=== PATIENT | male | born 1960 | race Caucasian/White ===

== ENCOUNTER 2019-06-22 04:52 | Inpatient (IN) ==
--- NOTE | 2019-06-08 10:26 | PAT Medication Instructions ---
Medication Instructions Date of Service June 08, 2019 Home Medications cholecalciferol (vitamin D3) [Vitamin D3] 125 mcg PO BID clorazepate dipotassium 7.5 mg PO BID cyclobenzaprine 10 mg PO BID PRN fentanyl 1 patch TRANSDERMAL Q72H multivitamin 2 tab PO QAM [Airborne (ascorbate sodium)] 1.7 mg PO BID prednisone [Anne-Marie] 5 mg PO HS Continue as directed fentanyl 1 patch TRANSDERMAL Q72H (okay to continue as directed by prior to surgery please avoid placement over surgery area) DO NOT take the morning of surgery cholecalciferol (vitamin D3) [Vitamin D3] 125 mcg PO BID cyclobenzaprine 10 mg PO BID PRN multivitamin 2 tab PO QAM [Airborne (ascorbate sodium)] 1.7 mg PO BID Take morning of surgery With a small sip of water, OTHERWISE NOTHING TO EAT OR DRINK AFTER MIDNIGHT: clorazepate dipotassium 7.5 mg PO BID Take evening before surgery cholecalciferol (vitamin D3) [Vitamin D3] 125 mcg PO BID clorazepate dipotassium 7.5 mg PO BID cyclobenzaprine 10 mg PO BID PRN (if needed) [Airborne (ascorbate sodium)] 1.7 mg PO BID prednisone [Anne-Marie] 5 mg PO HS Other Notes If you have any questions please call us at [phone] or [phone] or [phone] or [phone]
--- NOTE | 2019-06-08 10:35 | PAT Medication Instructions ---
Medication Instructions Date of Service June 08, 2019 Take morning of surgery With a small sip of water, OTHERWISE NOTHING TO EAT OR DRINK AFTER MIDNIGHT: Insulin Dependent Diabetic Patients * Test your blood sugar the morning of surgery * If Blood Sugar is GREATER THAN 150, take HALF of your regular dose of: * If Blood Sugar is LESS THAN 150, DO NOT TAKE ANY: Other Notes If you have any questions please call us at [phone] or [phone] or [phone] or [phone]
--- NOTE | 2019-06-09 13:08 | Anesthesiology Consultation ---
Date of Service June 09, 2019 Assessment & Plan (1) Encounter for pre-operative examination: Chart Review Chart Review: Patient seen in Pre Admission Testing Teaching & Discussion Pre-Anesthesia Teaching/Discussion Notes: Instructed NPO after midnight before surgery,except medications with 15 cc of water. Medication instructions provided according to the PAT guidelines. History Surgery Operation Date: 06/22/19 07:45 Proposed Procedures p Left Anterior Total Hip Arthroplasty - Mateusz Clark DO Height/Weight Height: 5 ft 8 in Weight: 68.039 kg Allergies Allergy/AdvReac Type Severity Reaction Status Date / Time morphine AdvReac Unknown HALLUCINATIONS, Verified 06/04/19 12:27 SKIN "CRAWLING" aspirin AdvReac Unknown Verified 06/04/19 12:28 NSAIDS (Non-Steroidal AdvReac elevated Verified 06/04/19 12:28 Anti-Inflamma LFT Medications Home Medications Medication Instructions Recorded Confirmed Last Taken cholecalciferol (vitamin D3) 125 mcg PO BID 06/04/19 06/04/19 Unknown [Vitamin D3] clorazepate dipotassium 7.5 mg PO BID 06/04/19 06/04/19 Unknown cyclobenzaprine 10 mg PO BID PRN 06/04/19 06/04/19 Unknown fentanyl 1 patch TRANSDERMAL Q72H 06/04/19 06/04/19 Unknown multivitamin 2 tab PO QAM 06/04/19 06/04/19 Unknown [id number] 1.7 mg PO BID 06/04/19 06/04/19 Unknown [Airborne (ascorbate sodium)] prednisone [Anne-Marie] 5 mg PO HS 06/04/19 06/04/19 Unknown Past Medical History Medical History Anxiety Chronic back pain Degenerative disc disease IBS (irritable bowel syndrome) Osteoarthritis Osteoporosis PMR (polymyalgia rheumatica) Past Family History Family History Grandfather (Maternal) Family history of esophageal cancer Uncle Family history of esophageal cancer Other No family history of adverse response to anesthesia Past Surgical History Surgical History History of colonoscopy History of esophagogastroduodenoscopy (EGD) History of fusion of cervical spine limited ROM to the left side History of lumbar fusion History of toe surgery History of tooth extraction Social History Smoking Status: Current every day smoker tobacco type: cigarettes Smoking cigarettes per day: 1/2 ppd Do You Dip or Chew Tobacco: No Hx Alcohol Use: No Hx Substance Use: No substance use type: does not use Physical Exam Vital Signs Patient denies chest pain, shortness of breath, dyspnea on exertion, joint pain, reflux, cough, wheezing, palpitations. PHYSICAL Full neck and c-spine range of motion. Full TMJ range of motion. TMD __ finger breaths Mallampati Score ___ Dentition: intact Lungs: clear throughout to auscultation Cardiac: regular rate and rhythm, no murmurs noted Spine: normal Carotid arteries: negative bruit Extremities: no edema
--- NOTE | 2019-06-09 13:18 | Anesthesiology Consultation ---
Date of Service June 09, 2019 Assessment & Plan (1) Encounter for pre-operative examination: Chart Review Chart Review: Acceptable Risk for Surgery (pending PCP clearance ) and Patient seen in Pre Admission Testing Pt on low dose steroid daily for PMR Awaiting surgeon ordered PCP clearance- 06/15/19 History Surgery Operation Date: 06/22/19 07:45 Proposed Procedures p Left Anterior Total Hip Arthroplasty - Mateusz Clark, Height/Weight Height: 5 ft 8 in Weight: 72.8 kg Allergies Allergy/AdvReac Type Severity Reaction Status Date / Time morphine AdvReac Unknown HALLUCINATIONS, Verified 06/04/19 12:27 SKIN "CRAWLING" aspirin AdvReac Unknown Verified 06/04/19 12:28 NSAIDS (Non-Steroidal AdvReac elevated Verified 06/04/19 12:28 Anti-Inflamma LFT Medications Home Medications Medication Instructions Recorded Confirmed Last Taken cholecalciferol (vitamin D3) 125 mcg PO BID 06/04/19 06/04/19 Unknown [Vitamin D3] clorazepate dipotassium 7.5 mg PO BID 06/04/19 06/04/19 Unknown cyclobenzaprine 10 mg PO BID PRN 06/04/19 06/04/19 Unknown fentanyl 1 patch TRANSDERMAL Q72H 06/04/19 06/04/19 Unknown multivitamin 2 tab PO QAM 06/04/19 06/04/19 Unknown [id number] 1.7 mg PO BID 06/04/19 06/04/19 Unknown [Airborne (ascorbate sodium)] prednisone [Anne-Marie] 5 mg PO HS 06/04/19 06/04/19 Unknown Past Medical History Medical History Anxiety Chronic back pain Multiple surgeries Degenerative disc disease IBS (irritable bowel syndrome) Controlled and stable Osteoarthritis Osteoporosis No known fractures PMR (polymyalgia rheumatica) Controlled and stable- low dose steroid- follows with rheum Exercise / Class Metabolic Activity II 4-5 Yardwork/Stairs/Walk up hill (one flight of stairs - no chest pain or SOB ) Past Family History Family History Grandfather (Maternal) Family history of esophageal cancer Uncle Family history of esophageal cancer Other No family history of adverse response to anesthesia Past Surgical History Surgical History History of colonoscopy History of esophagogastroduodenoscopy (EGD) History of fusion of cervical spine limited ROM to the left side History of lumbar fusion Three different lumbar surgeries History of toe surgery History of tooth extraction Past Anesthesia History No Hx of Anesthesia Complications and No Family Hx of Anesthesia Complications History of PONV No Hx of PONV and No Hx of Motion Sickness Social History Smoking Status: Current every day smoker tobacco type: cigarettes Smoking cigarettes per day: 1/2 ppd Do You Dip or Chew Tobacco: No Hx Alcohol Use: No Hx Substance Use: No substance use type: does not use Review of Systems Patient denies chest pain, shortness of breath, dyspnea on exertion, reflux, cough, wheezing, palpitations. No hx of seizures, CVA, [place]. No hx of blood clots or blood transfusions. Takes daily Prednisone. Physical Exam Vital Signs VITALS BP148/83 P 64 TEMP 97.6 SP02 97% RESP 16 Constitutional no acute distress ENMT Mouth: no TMJ clicking Thyromental Distance: > or= 3.5 Finger Breadths (3.5) Mallampati Class: I Mouth / Teeth: 1. Missing 2. Missing 3. Missing Neck + limited neck extension (no significant issues with neck extension- decreased rotation to left side ) Respiratory normal respiratory effort; no respiratory distress Auscultation: lungs clear to auscultation bilaterally; no wheezes Cardiovascular Rate/Rhythm: regular rate and regular rhythm Vessels: no carotid bruit Musculoskeletal Spine: no pain with cervical ROM Extremities: extremities normal to inspection No LE dedema Neurologic moves all extremities Psychiatric Orientation: alert Testing Laboratory Results 06/09/19 13:35 06/09/19 13:35 PT 10.4 Seconds (9.0-12.0) 06/09/19 13:35 INR 1.0 (0.9-1.1) 06/09/19 13:35 APTT 28.9 Seconds (21.0-31.0) 06/09/19 13:35 Hemoglobin A1c 5.2 % (4.5-5.6) 06/09/19 13:35 Urine Color Yellow 06/09/19 13:35 Urine Appearance Clear (Clear) 06/09/19 13:35 Urine pH 6.5 (4.5-7.5) 06/09/19 13:35 Ur Specific [place] 1.005 (1.000-1.030) 06/09/19 13:35 Urine Protein Negative (Negative) 06/09/19 13:35 Urine Glucose (UA) Negative (Negative) 06/09/19 13:35 Urine Ketones Negative (Negative) 06/09/19 13:35 Urine Nitrite Negative (Negative) 06/09/19 13:35 Ur Leukocyte Esterase Negative (Negative) 06/09/19 13:35 Blood Type O Negative 06/09/19 13:35 Antibody Screen NEGATIVE 06/09/19 13:35 Electrocardiogram Date: 06/09/19 Findings: + NSR @ (73) BRANDEN - compared to 09/2015 EKG no significant change Chest X-Ray Date: 06/09/19 No airspace consolidation. Blunting of the posterior costophrenic angles may be secondary to atelectasis versus trace effusions
--- NOTE | 2019-06-09 14:01 | XRay Report ---
XR chest Pre-admission PA/Lat HISTORY: 58 years-old Male pat preoperative exam. No acute chest complaints COMPARISON: None available TECHNIQUE: PA and lateral views of the chest FINDINGS: Cardiomediastinal and hilar silhouettes are within normal limits. There is no pneumothorax, large ple ural effusion, focal airspace consolidation or overt pulmonary edema. Bones of the chest appear gross ly intact. Mild blunting of the posterior costophrenic angles may be secondary to atelectasis versus trace effusions. Fusion hardware of the lower cervical spine. IMPRESSION: 1. No airspace consolidation. 2. Blunting of the posterior costophrenic angles may be secondary to atelectasis versus trace effusio ns. ACT 112: Negative or not required by law. The above report was generated using voice recognition software. It may contain grammatical, syntax o r spelling errors. Electronically signed by: Torres Silva M.D. 06/09/2019 2:00 PM
[2019-06-09 14:22] LABS: Basophils # (auto) 0.03 K/uL (0-0.2); Basophils % (auto) 0.3 %; Hematocrit (blood only) 46.5 % (42-52); Hemoglobin 15.8 g/dL (14.0-18.0); Immature Granulocytes # (auto) 0.02 K/uL (0.00-0.02); Immature Granulocytes % (auto) 0.2 %; Lymphocytes # (auto) 2.55 K/uL (1.2-3.4); Lymphocytes % (auto) 25.1 %; Mean Corpuscular Hemoglobin 32.5 pg (25-34); Mean Corpuscular Volume 95.7 fL (80-100); Mean Platelet Volume 10.5 fL (7.4-10.4); Monocytes # (auto) 0.85 K/uL (0.11-0.59); Monocytes % (auto) 8.4 %; Neutrophils # (auto) 6.61 K/uL (1.4-6.5); Platelet Count 218 K/uL (130-400); RDW Coefficient of Variation 12.6 % (11.5-14.5); RDW Standard Deviation 43.6 fL (36.4-46.3); Red Blood Count 4.86 M/uL (4.7-6.1); White Blood Count 10.16 K/uL (4.8-10.8)
[2019-06-09 14:34] LABS: Albumin Level 4.2 gm/dl (3.4-5.0); BUN Creatinine Ratio 8.6 (10-20); Calcium 9.7 mg/dl (8.5-10.1); Creatinine Clr Calc Pharmacy 93.8 ml/min; Est GFR (Non-African American) 96.6; Potassium 4.1 mmol/L (3.5-5.1)
[2019-06-09 14:38] LABS: Appearance Urine Clear (Clear); Bilirubin Urine Negative (Negative); Blood Urine Negative (Negative); Color Urine Yellow; Glucose Urine UA Negative (Negative); Ketones Urine Negative (Negative); Leukocyte Esterase Urine Negative (Negative); Nitrite Urine Negative (Negative); Partial Thromboplastin Ratio 1.1; Partial Thromboplastin Time 28.9 Seconds (21.0-31.0); Protein Urine Negative (Negative); Prothrombin Time 10.4 Seconds (9.0-12.0); Specific Gravity Urine 1.005 (1.000-1.030); Urobilinogen Urine Negative (Negative); pH Urine 6.5 (4.5-7.5)
[2019-06-09 14:54] LABS: Estimated Average Glucose 103 mg/dl; Hemoglobin A1C 5.2 % (4.5-5.6)
--- NOTE | 2019-06-09 17:57 | Electrocardiogram Report ---
Test Reason : Blood Pressure : / mmHG Vent. Rate : 073 BPM Atrial Rate : 073 BPM P-R Int : 172 ms QRS Dur : 100 ms QT Int : 374 ms P-R-T Axes : 081 065 074 degrees QTc Int : 412 ms Normal sinus rhythm Right atrial enlargement Borderline ECG When compared with ECG of 19-SEP-2015 11:35, No significant change was found Confirmed by Tru Braxton ([id number]) on 06/09/2019 5:57:27 PM Referred By: Mateusz Clark Confirmed By:Juvenal Braxton
--- NOTE | 2019-06-19 21:19 | History & Physical Report ---
Date of Service June 19, 2019 Assessment & Plan (1) Degenerative joint disease of left hip: I have indicated the patient for left anterior total hip replacement. The risks, benefits and complications of surgery were explained to the patient which include but not limited to infection, acute blood loss, DVT/PE, injury to nerves, vessels, bone, soft tissue, arthrofibrosis, chronic pain, failure of the prosthesis, hip dislocation, leg length discrepancy, need for additional surgery, cardiac and pulmonary events and . The patient wished to proceed with surgery and informed consent was obtained at this time. We will plan for Lovenox post-operatively for DVT prophylaxis. Upon discharge the patient will be discharged home with home health services. Appropriate clearances by PCP were obtained. History of Present Illness Chief Complaint: Left hip pain/djd Primary Care Provider: Juan Antonio Hightower The patient is a 58 year old male who presents with complaints of severe left hip pain and DJD. The patient has failed outpatient conservative treatments to this point which included IA corticosteroid injection and a home exercise/wa lking program. Patient unable to take NSAIDs due to allergy. The patient's pain and limited function have progressed to the point where they severely hinder their activities of daily living and they no longer tolerate exercise programs. They are requesting to proceed with total hip replacement surgery. Allergies Allergy/AdvReac Type Severity Reaction Status Date / Time morphine AdvReac Unknown HALLUCINATIONS, Verified 06/22/19 05:34 SKIN "CRAWLING" aspirin AdvReac Unknown Verified 06/22/19 05:34 NSAIDS (Non-Steroidal AdvReac elevated Verified 06/22/19 05:34 Anti-Inflamma LFT Home Medications Home Medications Medication Instructions Recorded Confirmed Type cholecalciferol (vitamin D3) 125 mcg PO BID 06/04/19 06/22/19 History [Vitamin D3] clorazepate dipotassium 7.5 mg PO BID 06/04/19 06/22/19 History cyclobenzaprine 10 mg PO BID PRN 06/04/19 06/22/19 History fentanyl 1 patch TRANSDERMAL Q72H 06/04/19 06/22/19 History multivitamin 2 tab PO QAM 06/04/19 06/22/19 History [id number] 1.7 mg PO BID 06/04/19 06/22/19 History [Airborne (ascorbate sodium)] prednisone [Anne-Marie] 5 mg PO HS 06/04/19 06/22/19 History Past Med/Surg History Medical History Anxiety Chronic back pain Multiple surgeries Degenerative disc disease IBS (irritable bowel syndrome) Controlled and stable Osteoarthritis Osteoporosis No known fractures PMR (polymyalgia rheumatica) Controlled and stable- low dose steroid- follows with rheum Surgical History History of colonoscopy History of esophagogastroduodenoscopy (EGD) History of fusion of cervical spine limited ROM to the left side History of lumbar fusion Three different lumbar surgeries History of toe surgery History of tooth extraction Family History Grandfather (Maternal) Family history of esophageal cancer Uncle Family history of esophageal cancer Other No family history of adverse response to anesthesia Social History Preferred Language: [place] Communication Ability: Effective Relations Coordinator Required: No Beliefs That Will Affect Care: None Current Living Situation: Spouse Other Information That Helps Us Care for You: No Feels Safe at Home: Yes Safety Concerns: Feels Safe At This Time Smoking Status: Current every day smoker Tobacco Type: cigarettes ; Cigarettes Per Day: 1/2 ppd ; Do You Dip or Chew Tobacco: No ; Second Hand Exposure: No ; Tobacco Cessation Education Requested by Patient: No Hx Alcohol Use: No Hx Substance Use: No Review of Systems Review of Systems: All systems reviewed & are unremarkable except as noted in HPI & below Constitutional: as per Subjective / HPI Physical Exam Physical Exam: LLE NVSI +EHL/FHL/TA/GS SILT grossly, +2 DP pulse, compartments soft NT, limited painful ROM of the hip, antalgic gait. Constitutional: WD/WN, vitals as above Eyes: PERRL, conjunctivae normal, anicteric sclerae ENMT: external ear and nose normal, oropharynx normal Neck: trachea midline, no thyromegaly Respiratory: normal respiratory effort, lungs clear to auscultation Cardiovascular: RRR, no murmur, no edema Gastrointestinal (Abdomen): normal bowel sounds, soft, nontender, no hepatosplenomegaly Musculoskeletal: no cyanosis or clubbing, extremities motor strength 5/5 Skin: no rashes, warm and dry Neurologic: patellar DTR's 2+ bilat, sensation intact Psychiatric: A+Ox3, euthymic affect Lymphatic: no cervical or axillary lymphadenopathy Results & Data Diagnostic Findings Multiple views of the hip demonstrates severe DJD with complete loss of the joint space. +osteophytes, +sclerosis, +subchondral cysts.
[2019-06-22] MEDS ORDERED: FAMOTIDINE 20 MG TAB PO SCH (06:00)
[2019-06-22] MEDS ORDERED: TRANEXAMIC ACID 1,000 MG **IV Pre-op IV SCH (06:00)
[2019-06-22] MEDS ORDERED: ACETAMINOPHEN 500 MG TAB PO SCH (06:00)
[2019-06-22] MEDS ORDERED: dexAMETHasone 4 MG TAB PO SCH (06:00)
[2019-06-22] MEDS ORDERED: LR 500ML BOLUS, THEN 15ML/HR IV SCH (06:00)
[2019-06-22] MEDS ORDERED: METOCLOPRAMIDE HCL 10 MG TABLET PO SCH (06:00)
[2019-06-22] MEDS ORDERED: GABAPENTIN 600 MG DOSE PO SCH (06:00)
[2019-06-22] MEDS ORDERED: CEFAZOLIN 1000MG 1,000 MG/7.5 ML SYR IV SCH (06:00)
[2019-06-22] MEDS ORDERED: TRANEXAMIC ACID 1,000 MG **IV Intra-op IV SCH (06:00)
[2019-06-22] MEDS ORDERED: ROPIVACAINE 0.5% HCL/PF 150 MG, BUPIVACAINE 0.5% MPF 30 ML, EPINEPHrine 30MG/30ML (OR U... INSTIL SCH (06:00)
[2019-06-22] MEDS ORDERED: BUPIVACAINE 0.5 % 5 MG/1 ML PF 10ML VIAL ONE (06:19)
[2019-06-22] MEDS ORDERED: MIDAZOLAM HCL 1 MG/ML 2ML VIAL ONE ×2 (06:42→07:40)
[2019-06-22] MEDS ORDERED: fentaNYL citrate 100 MCG/2 ML VIAL ONE (06:43)
[2019-06-22] MEDS ORDERED: PROPOFOL IV EMULSION 10 MG/ML 20 ML VIAL IV ONE ×2 (06:51→08:08)
[2019-06-22] MEDS ORDERED: LIDOCAINE HCL 2% 2 ML VIAL/AMP(20MG/ML) INFIL ONE (06:51)
[2019-06-22] MEDS ORDERED: ONDANSETRON INJ 2 MG/ML 2 ML VIAL ONE (06:54)
[2019-06-22] MEDS ORDERED: BACITRACIN INJ 50,000 UNIT VIAL ONE (06:57)
[2019-06-22] MEDS ORDERED: ORTHO JOINT ANESTHETIC ONE (06:57)
[2019-06-22] MEDS ORDERED: ATROPINE SULFATE 0.1 MG/ML 10ML SYR IV PRN (06:58)
[2019-06-22] MEDS ORDERED: fentaNYL citrate 100 MCG/2 ML VIAL IV PRN (06:58)
[2019-06-22] MEDS ORDERED: ePHEDrine sulfate 50 MG/ML AMP IV PRN (06:58)
[2019-06-22] MEDS ORDERED: ONDANSETRON INJ 2 MG/ML 2 ML VIAL IV PRN ×2 (06:58→10:38)
--- NOTE | 2019-06-22 07:10 | History & Physical Bridge Note ---
Date of Service June 22, 2019 History & Physical Bridge Note I have examined the patient, reviewed the History & Physical and in the interval since the performance of the History & Physical I have noted the following changes of clinical significance: no changes noted
[2019-06-22] MEDS ORDERED: KETAMINE HCL INJ 50 MG/ML 10 ML VIAL ONE (07:41)
[2019-06-22] MEDS ORDERED: CEFAZOLIN 250 MG/ML 1 GM VIAL ONE (07:51)
[2019-06-22] MEDS ORDERED: ePHEDrine sulfate 50 MG/ML SYR ONE (08:08)
[2019-06-22] MEDS ORDERED: CEFAZOLIN 1000MG 1,000 MG/7.5 ML SYR IV ONE (08:58)
--- NOTE | 2019-06-22 09:05 | Post Operative Brief Note ---
Immediate Post Op Note v1 Date of Surgery June 22, 2019 Pre & Post Diagnosis Operation Date: 06/22/19 07:15 Pre-Op Diagnosis: Left Hip Osteoarthritis Post-Op Diagnosis: Left Hip Osteoarthritis I identified the patient and participated in the time-out.: Yes Procedure Operation Date: 06/22/19 07:15 Actual Procedures p Left Anterior Total Hip Arthroplasty uncemented(Left) - Mateusz Clark DO Surgeon Mateusz Clark DO Corporate Recruiter David Carrion Estimated Blood Loss 125 Findings Consistent with Post-Op Diagnosis Fluids 2000 cc LR Specimens femoral head Anesthesia Type Spinal MAC Complications none Disposition Disposition: Recovery Room Overlapping Procedure I was present for: the critical portions of procedure. I was immediately available: during the entire case. Back up surgeon: was not required during procedure.
--- NOTE | 2019-06-22 09:07 | Fluoroscopy Report ---
FL hip LT 1V CLINICAL HISTORY: Left anterior total hip arthroplasty COMPARISON STUDY: None. FLUOROSCOPY TIME: 53 seconds. FLUOROSCOPIC IMAGES: 2 FINDINGS: Fluoroscopy was provided during total left hip arthroplasty. Alignment of the hardware is a natomic. Hardware is intact. Acetabular screw is noted. There is no fracture or unexpected radiopaque foreign body. IMPRESSION: Expected findings following total left hip arthroplasty. ACT 112: Negative or not required by law. Electronically signed by: Paco Navas M.D. 06/22/2019 9:06 AM
--- NOTE | 2019-06-22 09:09 | Operative Report ---
Post Operative Report Pre & Post Diagnosis Operation Date: 06/22/19 07:15 Pre-Op Diagnosis: Left Hip Osteoarthritis Post-Op Diagnosis: Left Hip Osteoarthritis I identified the patient and participated in the time-out.: Yes Procedure Operation Date: 06/22/19 07:15 Actual Procedures p Left Anterior Total Hip Arthroplasty uncemented(Left) - Mateusz Clark DO Surgeon Mateusz Clark DO Advertising Intern David Carrion Estimated Blood Loss 125 Findings Consistent with Post-Op Diagnosis Specimens femoral head Anesthesia Type Spinal MAC Complications none Disposition Disposition: Recovery Room Indications The patient is a 58-year-old male who presents with severe progressive left hip DJD who has failed outpatient conservative treatments. I indicated the patient for a anterior total hip replacement and the risks and benefits were explained in detail which include but not limited to infection, bleeding, blood clot, damage to surrounding bone, nerves, vessels, soft tissue, hip dislocation, failure of the prosthesis, leg length discrepancy, need for additional surgery and . The patient agreed to proceed with replacement of the hip and informed consent was obtained. Appropriate clearances were obtained. Description of Procedure COMPONENTS USED: [employer] hip system: Acetabulum size 56, femur size 7 high offset, femoral head 36+0, liner 5636, acetabular screw 25 mm x 1. DESCRIPTION OF PROCEDURE: Following satisfactory spinal anesthesia, the patient was placed supine on the OR table. The right leg was placed in the well leg marin and the left leg in the traction device. The left leg was prepared with ChloraPrep and draped sterilely. A surgical timeout was performed, patient identified and site desiree verified. Appropriate antibiotics were given. A standard anterior approach in the interval between the sartorius and tensor muscles was performed. Dissection was carried down through subcutaneous tissues. Electrocautery was utilized for hemostasis. Circumflex femoral vessels were identified, tied and ligated. The anterior capsular fat pad was removed and the capsulotomy was performed revealing the arthritic femoral neck and head. A femoral neck cut was made with reciprocating saw and the bone fragments removed. The acetabular self-retraining retractor was placed. Acetabular reaming was completed under fluoroscopic guidance, a 56 shell was impacted into an anatomic position and secured with a dome screw. Local anesthetic was placed and following irrigation, the polyethylene liner was placed. The femur was placed into position of external rotation, extension and adduction. Femoral canal was prepared up to the size 7 high offset. Trial reduction with a +0 neck length head showed good soft tissue tension, leg l engths restored, and good fit and fill of the proximal canal using fluoroscopic landmarks. The hip was dislocated. The trial component was removed. The final implant was placed. The hip was irrigated with sterile saline solution and reduced. A Betadine soak was performed. After 3 minutes, the hip was once more irrigated with copious sterile saline solution with bacitracin. Darshana-incisional soft tissue was injected utilizing [place] [employer] which includes a combination of Ropivicaine 0.5% 150mg, Bupivicaine 0.5%/Epinephrine 1:200,000 30ml, Toradol 30mg, Dexamethasone 4mg, Ketamine 10mg, Clonidine 100mcg and NSS 30ml solution. The capsule was then closed with 1-0 Vicryl interrupted figure of eight sutures. The fascia was closed with a running suture of #1 Vicryl, the subcutaneous tissues with 2-0 Vicryl and the skin with a running subcuticular stitch of 3-0 V-Loc. Dermabond prineo and a dry dressing were applied. The patient tolerated the procedure well and was transported to PACU in stable condition. Due to the complex nature of the procedure, the entire surgery was performed with the operational assistance of David carrion PA-C. The judicial administrative assistant, under direct supervision, was involved in the actual performance of all aspects of the surgical procedure including patient positioning, hemostasis, tissue retraction, instrument management and wound closure. I attest to the content of the Intraoperative Record and any orders documented therein. Any exceptions are noted below.
--- NOTE | 2019-06-22 10:04 | XRay Report ---
XR hip 1V LT w pelvis CLINICAL HISTORY: Postoperative evaluation. COMPARISON: Intraoperative fluoroscopic images of the left hip. FINDINGS: Alignment of the total left hip arthroplasty is anatomic anatomic. There is no periprosthe tic fracture or unexpected radiopaque foreign body. There is an acetabular screw. IMPRESSION: Expected findings following total left hip arthroplasty. ACT 112: Negative or not required by law. Electronically signed by: Paco Navas M.D. 06/22/2019 10:03 AM
[2019-06-22] MEDS ORDERED: METOCLOPRAMIDE HCL INJ 5 MG/ML 2 ML VIAL IV PRN (10:38)
[2019-06-22] MEDS ORDERED: MAGNESIUM HYDROXIDE SUSP 30 ML UDC PO PRN (10:38)
[2019-06-22] MEDS ORDERED: NALOXONE HCL 0.4 MG/1 ML VIAL/CARP IV PRN (10:38)
[2019-06-22] MEDS ORDERED: HYDROmorphone INJ 0.5 MG/0.5 ML SYR IV PRN (10:38)
[2019-06-22] MEDS ORDERED: bisacodyL 10 MG SUPP PR PRN (10:38)
--- NOTE | 2019-06-22 10:47 | Anesthesiology Progress Note ---
Date of Service June 22, 2019 Anesthesia Post Procedure Vital Signs Vital Signs: Temp Pulse Pulse Pulse Resp BP Pulse Ox 06/22/19 10:25 36.4 C L 65 16 105/64 97 06/22/19 10:10 56 L 16 101/61 98 06/22/19 10:02 36.3 C L 59 L 15 102/60 96 06/22/19 09:50 69 10 L 96/61 L 100 06/22/19 09:40 65 10 L 83/58 L 100 06/22/19 09:30 65 10 L 86/51 L 100 06/22/19 09:24 36.3 C L 75 12 89/53 L 96 06/22/19 05:39 36.5 C 55 L 16 93/67 L 96 Pain Intensity Back: Pain Intensity: 7 Left Hip: Pain Intensity: 0 Transfer of Care Handoff Completed per policy Notes Mental Status: alert / awake / arousable and participated in evaluation Patient Amnestic to Procedure: Yes Nausea / Vomiting: adequately controlled Pain: adequately controlled Airway Patency, RR, SpO2: stable & adequate BP & HR: stable & adequate Hydration State: stable & adequate Neuraxial Anesthesia: was administered and sensory block is resolving Anesthetic Complications: no major complications apparent and Pt Satisfied with anesthetic care
[2019-06-22] MEDS: SODIUM CHLORIDE 0.9% 1000ML 1,000 ML IV SCH ×2 (11:27→20:36)
--- NOTE | 2019-06-22 12:24 | Orthopedic Progress Note ---
Date of Service June 22, 2019 Assessment & Plan (1) Degenerative joint disease of left hip: Status post left anterior total hip arthroplasty -Ancef x24 -DVT prophylaxis SCDs, teds, Lovenox daily -Weight-bear as tolerates left lower extremity -PT/OT -Postoperative x-ray demonstrates a well aligned well fixed orthopedic prosthesis without evidence of fracture or dislocation. -A.m. labs -DC planning Admission and Anticipated Discharge Date Admission Date: June 22, 2019 Subjective Post Operative Progress Note Patient seen sitting up in bed, comfortable, denies complaints, pain well controlled, no acute issues. Still feeling effects of spinal anesthesia. Review of Systems Review of Systems: All systems reviewed & are unremarkable except as noted in HPI & below Constitutional: as per Subjective / HPI Physical Exam Physical Exam: Physical exam limited secondary to spinal anesthesia, +2 dorsalis pedis pulse, compartment soft nontender, dressing clean dry and intact. Constitutional: WD/WN, vitals as above Results & Data ([facility]) Vital Signs (Past 12 Hours) Vital Signs Temp Pulse Pulse Pulse Pulse Resp BP 06/22/19 12:07 36.5 C 59 L 16 117/73 06/22/19 11:24 36.4 C L 60 16 106/66 06/22/19 10:57 64 16 109/66 06/22/19 10:25 36.4 C L 65 16 105/64 06/22/19 10:10 56 L 16 101/61 06/22/19 10:02 36.3 C L 59 L 15 102/60 06/22/19 09:50 69 10 L 96/61 L 06/22/19 09:40 65 10 L 83/58 L 06/22/19 09:30 65 10 L 86/51 L 06/22/19 09:24 36.3 C L 75 12 89/53 L 06/22/19 05:39 36.5 C 55 L 16 93/67 L Pulse Ox 06/22/19 12:07 99 06/22/19 11:24 99 06/22/19 10:57 97 06/22/19 10:25 97 06/22/19 10:10 98 06/22/19 10:02 96 06/22/19 09:50 100 06/22/19 09:40 100 06/22/19 09:30 100 06/22/19 09:24 96 06/22/19 05:39 96
[2019-06-22] MEDS: ACETAMINOPHEN 500 MG TAB PO SCH ×2 (13:33→22:01)
[2019-06-22] MEDS: TRAMADOL HCL 50 MG TABLET PO PRN ×2 (13:35→20:35)
[2019-06-22] MEDS: CHECK FENTANYL PATCH PLACEMENT SCH (18:25)
[2019-06-22] MEDS: CEFAZOLIN 2000MG 2,000 MG/15 ML SYR IV SCH (18:25)
[2019-06-22] MEDS: DOCUSATE SODIUM 100 MG CAP PO SCH (20:36)
[2019-06-22] MEDS ORDERED: SENNA 8.6 MG TAB PO SCH (21:00)
[2019-06-22] MEDS ORDERED: predniSONE 5 MG TAB PO SCH (21:00)
[2019-06-23] MEDS: CHECK FENTANYL PATCH PLACEMENT SCH ×2 (00:12→08:49)
[2019-06-23] MEDS: CEFAZOLIN 2000MG 2,000 MG/15 ML SYR IV SCH (00:12)
[2019-06-23] MEDS: ACETAMINOPHEN 500 MG TAB PO SCH (05:46)
[2019-06-23 06:17] LABS: Hematocrit (blood only) 35.4 % (42-52); Hemoglobin 12.3 g/dL (14.0-18.0); Mean Corpuscular Hemoglobin 32.2 pg (25-34); Mean Corpuscular Hgb Conc 34.7 g/dL (32-36); Mean Corpuscular Volume 92.7 fL (80-100); Mean Platelet Volume 10.1 fL (7.4-10.4); Platelet Count 175 K/uL (130-400); RDW Coefficient of Variation 12.7 % (11.5-14.5); Red Blood Count 3.82 M/uL (4.7-6.1); White Blood Count 25.54 K/uL (4.8-10.8)
[2019-06-23 06:50] LABS: BUN Creatinine Ratio 13.8 (10-20); Basophils # (auto) 0.01 K/uL (0-0.2); Calcium 8.5 mg/dl (8.5-10.1); Creatinine Clr Calc Pharmacy 105.1 ml/min; Est GFR (African American) 117.4; Est GFR (Non-African American) 101.3; Immature Granulocytes # (auto) 0.13 K/uL (0.00-0.02); Immature Granulocytes % (auto) 0.5 %; Lymphocytes # (auto) 1.17 K/uL (1.2-3.4); Lymphocytes % (auto) 4.6 %; Monocytes % (auto) 8.6 %; Neutrophils # (auto) 22.03 K/uL (1.4-6.5); Neutrophils % (auto) 86.3 %
--- NOTE | 2019-06-23 07:45 | Anesthesiology Progress Note ---
Date of Service June 23, 2019 Anesthesia Post Procedure Vital Signs Vital Signs: Temp Pulse Pulse Pulse Resp BP Pulse Ox 06/23/19 07:33 36.7 C 67 17 131/67 95 06/23/19 03:19 36.6 C 69 16 139/73 97 06/22/19 23:24 36.7 C 69 16 105/58 L 97 06/22/19 19:04 36.7 C 77 16 122/72 97 06/22/19 15:26 36.5 C 67 17 133/70 96 06/22/19 12:07 36.5 C 59 L 16 117/73 99 06/22/19 11:24 36.4 C L 60 16 106/66 99 06/22/19 10:57 64 16 109/66 97 06/22/19 10:25 36.4 C L 65 16 105/64 97 06/22/19 10:10 56 L 16 101/61 98 06/22/19 10:02 36.3 C L 59 L 15 102/60 96 06/22/19 09:50 69 10 L 96/61 L 100 06/22/19 09:40 65 10 L 83/58 L 100 06/22/19 09:30 65 10 L 86/51 L 100 06/22/19 09:24 36.3 C L 75 12 89/53 L 96 Pain Intensity Back: Pain Intensity: 5 Left Hip: Pain Intensity: 4 Notes Mental Status: alert / awake / arousable Patient Amnestic to Procedure: Yes Nausea / Vomiting: adequately controlled Pain: adequately controlled Airway Patency, RR, SpO2: stable & adequate BP & HR: stable & adequate Hydration State: stable & adequate Neuraxial Anesthesia: was administered and sensory block resolved Anesthetic Complications: no major complications apparent and Pt Satisfied with anesthetic care
[2019-06-23] MEDS: DOCUSATE SODIUM 100 MG CAP PO SCH (08:53)
[2019-06-23] MEDS ORDERED: fentaNYL 50 MCG/HR TDSY TD SCH (09:00)
[2019-06-23] MEDS ORDERED: MULTIVITAMIN TAB PO SCH (09:00)
[2019-06-23] MEDS ORDERED: ENOXAPARIN INJ 40 MG/0.4 ML SYR SQ SCH (09:00)
--- NOTE | 2019-06-23 09:19 | Orthopedic Progress Note ---
Date of Service June 23, 2019 Assessment & Plan (1) Degenerative joint disease of left hip: Status post left anterior total hip arthroplasty POD#1 -Ancef x24 -DVT prophylaxis SCDs, teds, Lovenox daily -Weight-bear as tolerates left lower extremity -PT/OT -Postoperative x-ray demonstrates a well aligned well fixed orthopedic prosthesis without evidence of fracture or dislocation. -A.m. labs: hgb 12.3 -DC planning - home with Admission and Anticipated Discharge Date Admission Date: June 22, 2019 Subjective Post Operative Progress Note Patient seen sitting up in bed, comfortable, denies complaints, pain well controlled, no acute issues. Denies F/C/N/V/SOB/CP Review of Systems Review of Systems: All systems reviewed & are unremarkable except as noted in HPI & below Constitutional: as per Subjective / HPI Physical Exam Physical Exam: LLE NVSI +EHL/FHL/TA/GS SILT grossly, +2 DP pulse, compartments soft NT, dressing cdi. Constitutional: WD/WN, vitals as above Results & Data ([facility]) Vital Signs (Past 12 Hours) Vital Signs Temp Pulse Resp BP Pulse Ox 06/23/19 07:33 36.7 C 67 17 131/67 95 06/23/19 03:19 36.6 C 69 16 139/73 97 06/22/19 23:24 36.7 C 69 16 105/58 L 97 Laboratory Results 06/23/19 06/23/19 Range/Units 05:55 05:55 WBC 25.54 H (4.8-10.8) K/uL RBC 3.82 L (4.7-6.1) M/uL Hgb 12.3 L (14.0-18.0) g/dL Hct 35.4 L (42-52) % MCV 92.7 (80-100) fL MCH 32.2 (25-34) pg MCHC 34.7 (32-36) g/dL RDW Std Deviation 43.0 (36.4-46.3) fL RDW Coeff of Giovanny 12.7 (11.5-14.5) % Plt Count 175 (130-400) K/uL MPV 10.1 (7.4-10.4) fL Immature Gran % (Auto) 0.5 % Neut % (Auto) 86.3 % Lymph % (Auto) 4.6 % Doddridge % (Auto) 8.6 % Eos % (Auto) 0.0 % Baso % (Auto) 0.0 % Immature Gran # (Auto) 0.13 H (0.00-0.02) K/uL Neut # (Auto) 22.03 H (1.4-6.5) K/uL Lymph # (Auto) 1.17 L (1.2-3.4) K/uL Doddridge # (Auto) 2.20 H (0.11-0.59) K/uL Eos # (Auto) 0.00 (0-0.5) K/uL Baso # (Auto) 0.01 (0-0.2) K/uL Sodium 140 (136-145) mmol/L Potassium 4.0 (3.5-5.1) mmol/L Chloride 108 H (98-107) mmol/L Carbon Dioxide 24 (21-32) mmol/L Anion Gap 8.0 (3-11) BUN 10 (7-18) mg/dl Creatinine 0.71 (0.6-1.4) mg/dl Est Cr Clr Drug Dosing 105.1 ml/min Est GFR ( Amer) 117.4 Est GFR (Non-Af Amer) 101.3 BUN/Creatinine Ratio 13.8 (10-20) Glucose 113 H (70-99) mg/dl Calcium 8.5 (8.5-10.1) mg/dl
--- NOTE | 2019-06-23 18:51 | Discharge Summary ---
Date of Service June 23, 2019 Admission HPI Per Admitting Provider The patient is a 58 year old male who presents with complaints of severe left hip pain and DJD. The patient has failed outpatient conservative treatments to this point which included IA corticosteroid injection and a home exercise/walking program. Patient unable to take NSAIDs due to allergy. The patient's pain and limited function have progressed to the point where they severely hinder their activities of daily living and they no longer tolerate exercise programs. They are requesting to proceed with total hip replacement surgery. Principal Diagnosis Left anterior total hip replacement Discharge Exam LLE NVSI +EHL/FHL/TA/GS SILT grossly, +2 DP pulse, compartments soft NT, dressing cdi. Constitutional WD/WN, vitals as above Discharge Data Allergies Allergy/AdvReac Type Severity Reaction Status Date / Time morphine AdvReac Unknown HALLUCINATIONS, Verified 06/22/19 05:34 SKIN "CRAWLING" aspirin AdvReac Unknown Verified 06/22/19 05:34 NSAIDS (Non-Steroidal AdvReac elevated Verified 06/22/19 05:34 Anti-Inflamma LFT Consultations 06/23/19 08:00 Consult Case Management - Discharge Planning Routine Procedures Performed Operation Date: 06/22/19 07:15 Actual Procedures p Left Anterior Total Hip Arthroplasty uncemented(Left) - Mateusz Clark DO Ordered Studies 06/22/19 07:00 FL fluoroscopy <1hr Routine FL hip LT 1V Routine Hospital Course (1) Degenerative joint disease of left hip: The patient is a 59 -year-old male who presents with long standing history of severe left hip DJD and failed outpatient conservative treatments. The patient's symptoms have progressed to the point where it has been difficult to perform even normal activities of daily living. I indicated the patient for a left anterior total hip arthroplasty, the risks, benefits and complications of the procedure include but not limited to infection, bleeding, damage to bone, nerves, vessels, surrounding soft tissue, may develop blood clots, loss of function, leg length discrepancy, dislocation, failure of the components, loosening of the components, the need for additional surgery and . The patient wished to proceed with surgery at this time and informed consent was obtained. Hospital Course: On 06/22/19 the patient was taken to the operating room, adequate anesthesia a dministered and underwent a left anterior total hip arthroplasty. The patient tolerated the procedure well and was taken to the PACU in stable condition. Post-operatively the patient was started on a DVT ppx medication and given appropriate IV antibiotics. Consults were placed to physical therapy, occupational therapy and case management. On POD#1, the patient did well overnight and their pain was well controlled. Labs were drawn and the Hgb was 12.3. The patient progressed well with PT. Dressings were changed at this time and the incision was clean, dry and intact. The patients hospital stay was relatively uneventful and they were deemed stable by the orthopedic team and consultants to be discharged home with HH on 06/23/19. Discharge Instructions: Upon discharge the patient may weight bear as tolerates through their operative extremity. They were instructed to keep the incision clean and dry at all times. The patient may shower but should not submerge the incision, avoid bathing, pools and hot tubes. The patient was given a script for pain medication and should take as instructed. The patient was given a script for DVT ppx Lovenox 40mg daily and should take as directed. The patient was instructed to not drive or travel for long distances until cleared to do so. If the patient develops any symptoms of fevers, chills, nausea, vomiting, increased redness, swelling, pain or drainage from the surgical site, they should notify the office and/or proceed to the nearest emergency room. The patient should follow up in 10-14 days after surgery for their routine post-operative follow-up appointment and should call the office to confirm the date and time. Status post left anterior total hip arthroplasty POD#1 -Ancef x24 -DVT prophylaxis SCDs, teds, Lovenox daily -Weight-bear as tolerates left lower extremity -PT/OT -Postoperative x-ray demonstrates a well aligned well fixed orthopedic prosthesis without evidence of fracture or dislocation. -A.m. labs: hgb 12.3 -DC planning - home with HH Total Time Total Time Spent Total Time Spent (In Minutes): 30 minutes Discharge Plan Discharge Items Patient Disposition: Home - Home Health Services Reason For Visit: LEFT HIP OSTEOARTHRITIS Discharge Diagnosis: Left anterior total hip replacement Condition on Discharge: Good Activity: Per Instructions section Lifting: Wait until after follow-up appointment Bathing: Keep incision dry Sexual Activity: Wait until after follow-up appointment Exercise/Sports: Wait until after follow-up appointment Driving/Machine Use: No driving Weightbearing: Full weightbearing Non-emergency contact: Primary Care Provider and Surgeon Call non-emergency contact if: you have any medication questions, your symptoms worsen, your pain is not controlled, your pain is worsening, your pain is unusual for you, your pain is concerning for you, you have a fever, your temperature is above 101, your wound has increased redness and your wound has increased drainage Follow-up/Referrals: Juan Antonio Hightower [Primary Care Provider] - Diet: Regular Addtl Attending Provider Instructions: ACTIVITY RECOMMENDATIONS: SELF CARE INSTRUCTIONS AFTER TOTAL HIP REPLACEMENT : Direct Anterior Approach Until the incision and soft tissues around your hip have healed, there is a possibility that the hip prosthesis could dislocate. A. Hip flexion ( Up & Down out of chair or steps ) may be difficult. This is normal. B. Numbness in front of the thigh is also normal for a few weeks. C. Use hand rails when walking on stairs. D. Wear low heeled shoes with non-slip soles. E. Be sure that your floors are free of things that could trip you - throw rugs, electrical cords, small objects. Avoid wet and waxed floors, especially with crutches and canes. F. Try to walk several times a day with rest periods between. G. Continue with all the exercises taught to you in the hospital. Again, make walking a part of your daily routine. SPECIAL CARE INSTRUCTIONS: VERY IMPORTANT TO READ AND REVIEW A. You may still be at risk for phlebitis and blood clots. 1. Wear surgical stockings (INDIO hose) for 2 weeks after surgery to improve circulation and reduce swelling. 2. Take Lovenox 40mg daily for 4 weeks or as directed by your doctor. This is your blood thinner. 3. High risk patients may be prescribed a stronger blood thinner if necessary. 4. If you are on Coumadin normally, your family doctor/nurse prn should monitor your blood work. Expect a phone call the day of or the day after bloodwork is drawn to adjust your dosage. B. You must take antibiotics before having dental work, bladder, bowel and other surgery. Your doctor will provide you with a permanent card to carry describing precautions. C. Call [facility] if you have a fever, redness or swelling around the incision, cloudy drainage from incision, or sudden increase in pain in your hip, not relieved by your regular pain medication. D. Please call the office at if you have any concerns or questions about your operation or recovery. * YOU MAY SHOWER, NO TUB BATHS UNTIL CLEARED BY YOUR DOCTOR. - Keep an extra close eye on the top portion of your incision. Be sure to keep clean & dry. * WEAR INDIO HOSE 20 HOURS PER DAY FOR 2 WEEKS. * YOU MAY PROGRESS FROM A WALKER, TO A CANE, TO INDEPENDENT AT YOUR OWN PACE. * MOST PATIENTS WILL HAVE HOME NURSING FOR THERAPY. IF YOU DECIDE TO DO OUTPATIENT PHYSICAL THERAPY, PLEASE SCHEDULE THIS 3 TIMES PER WEEK. * DERMABOND Prineo- This is a mesh tape dressing that is covered with glue. It should remain in place until the incision is properly healed, usually 10-14 days. This dressing is designed to naturally slough off. You may trim the excess mesh tape as it peels off. Incision may be briefly wet in a shower. Dry immediately by blotting with a clean, dry towel. Do not bath or swim until instructed by your doctor. Do not scratch, rub, or pick at the dressing. Do not apply any topical ointments or lotions until dressing is completely removed and/or instructed by your doctor. There may be a small piece of suture material at one end of your incision. Do not pull or trim this. If it is bothersome or catching on clothing, you may cover it with a band-aid. FOLLOW UP VISIT: If appointment is not already scheduled: Please call [facility] to make a follow-up appointment for 2 weeks after your surgery at . Pending Studies at Discharge: No Stand-Alone Forms: My [facility] [employer], Smoking Cessation Medications and DC Order Prescriptions: New tramadol 50 mg Tablet 50 mg PO Q6H MDD 6 tabs PRN (Reason: pain) Qty: 30 RF: 0 acetaminophen 500 mg Tablet 1,000 mg PO Q8 PRN (Reason: Pain/fever) Qty: 90 RF: 0 enoxaparin 40 mg/0.4 mL Syringe 40 mg subcut Q24H Qty: 28 RF: 0 sennosides [Senokot] 8.6 mg Tablet 17.2 mg PO HS PRN (Reason: constipation) Qty: 28 RF: 0 Continued multivitamin Tablet 2 tab PO QAM RF: 0 fentanyl 50 mcg/hr Patch 72 Hour 1 patch TRANSDERMAL Q72H RF: 0 cholecalciferol (vitamin D3) [Vitamin D3] 125 mcg (5,000 unit) Tablet 125 mcg PO BID RF: 0 Anne-Marie 5 mg Tablet,Delayed Release (Dr/Ec) 5 mg PO HS RF: 0 Airborne (ascorbate sodium) 333-1.7 mg Tablet,Chewable 1.7 mg PO BID RF: 0 Discontinued cyclobenzaprine 10 mg Tablet 10 mg PO BID PRN (Reason: Muscle Spasm) RF: 0 clorazepate dipotassium 7.5 mg PO BID RF: 0 Discharge Orders: Discharge Order (Routine); Ordered 06/23/19 Ordered By: Mateusz Hernández/Other Patient Handouts: Enoxaparin injection Admission Data Admit Date/Time: 06/22/19 09:48 Attending Provider: Mateusz Clark Admit Provider: Mateusz Clark Primary Care Provider: Juan Antonio Hightower Other Interventions: Discharge Summary Assessment (RN) Last Done: 06/23/19 11:29 DC Date/Time DO NOT enter until pt leaves facility: 06/23/19 13:17
== END 2019-06-23 13:17 | disposition home health service (06) | DRG 470 ==
LOC: ASU 04:52 → 3E 09:48